=== PATIENT | female | born 2000 | race Two or more races ===

== ENCOUNTER 2022-10-28 14:16 | Emergency (ER) | payer OTHER ==
[~2022-10-28] VITALS: Ht 154.9 cm; Wt 59.9 kg
== END 2022-10-28 19:21 | disposition home or self-care (01) ==
LOC: EMR PED 14:16 → ER 14:16
DX: O26.893 Other specified pregnancy related conditions, third trimester (principal); Z3A.28 28 weeks gestation of pregnancy; R42 Dizziness and giddiness

== ENCOUNTER 2022-11-04 12:48 | Outpatient (CLI) | payer OTHER | END 2022-11-04 13:40 | disposition home or self-care (01) | LOC: NST 12:48 | PROVIDERS: ATTEND Obstetrics & Gynecology | DX: Z34.83 Encounter for supervision of other normal pregnancy, third trimester (principal) ==

== ENCOUNTER 2022-11-24 09:06 | Outpatient (CLI) | payer OTHER | END 2022-11-24 09:50 | disposition home or self-care (01) | LOC: NST 09:06 | PROVIDERS: ATTEND Obstetrics & Gynecology Maternal & Fetal Medicine | DX: Z34.83 Encounter for supervision of other normal pregnancy, third trimester (principal) ==

== ENCOUNTER 2022-12-16 11:12 | Outpatient (CLI) | payer OTHER | END 2022-12-16 12:18 | disposition home or self-care (01) | LOC: NST 11:12 | PROVIDERS: ATTEND Obstetrics & Gynecology | DX: Z34.83 Encounter for supervision of other normal pregnancy, third trimester (principal) ==

== ENCOUNTER 2023-01-04 12:12 | Inpatient (IN) | payer OTHER ==
[~2023-01-04] VITALS: Ht 154.9 cm; Wt 67.1 kg
[2023-01-04] MEDS ORDERED: TAPAZOLE5 MG PO (14:47)
[2023-01-04] MEDS ORDERED: PRENATAL + DHA1 EAC1 PO (14:48)
== END 2023-01-06 12:10 | disposition home or self-care (01) | DRG 807 ==
LOC: LDR 12:12 → OB/GYN 19:13
PROVIDERS: ADMIT Obstetrics & Gynecology; ATTEND Obstetrics & Gynecology
PROC: 10E0XZZ Delivery of Products of Conception, External Approach (ICD-10-PCS; principal; 2023-01-04)
PROC: 0UQG7ZZ Repair Vagina, Via Natural or Artificial Opening (ICD-10-PCS; 2023-01-04)
PROC: 4A1HXCZ Monitoring of Products of Conception, Cardiac Rate, External Approach (ICD-10-PCS; 2023-01-04)
DX: O71.4 Obstetric high vaginal laceration alone (principal); Z37.0 Single live birth; Z3A.38 38 weeks gestation of pregnancy; Z20.822 Contact with and (suspected) exposure to COVID-19

== ENCOUNTER 2024-12-25 05:17 | Day surgery (SDC) | payer OTHER ==
[2024-12-23 12:03] LABS: HEMATOCRIT 39.5 % (36.0-45.00); HEMOGLOBIN 13.1 g/dL (12.0-15.00); MEAN CELL VOLUME 89.1 fL (80.00-100.00); MEAN CORPUSCULAR HEMOGLOBIN 29.7 pg (27.00-32.0); MEAN CORPUSCULAR HGB CONC 33.3 g/dl (32.0-36.0); PLATELET COUNT 189 K/uL (150-450); RED BLOOD COUNT 4.43 M/uL (4.00-6.00); RED CELL DISTRIBUTION WIDTH 14.2 % (11.5-14.5)
[2024-12-23 12:14] LABS: COVID-19 AG NEGATIVE (NEGATIVE)
[2024-12-23 12:23] LABS: PH,URINE 5.5 (5.0-8.0); URINE APPEARANCE Clear; URINE BILIRRUBIN Negative (NEGATIVE); URINE BLOOD Negative; URINE COLOR Yellow; URINE GLUCOSE Negative (NEGATIVE); URINE KETONE Trace (NEGATIVE); URINE LEUKOCYTE Negative; URINE NITRATE Negative; URINE PROTEIN Negative (NEGATIVE); URINE UROBILINOGEN 0.2 E.U./dl
[2024-12-23 12:25] LABS: INR 1.06; PARTIAL THROMBOPLASTIN TIME 28.2 SECONDS (22.0-34.0); PROTHROMBIN TIME 11.5 SECONDS (9.0-11.5)
[2024-12-23 12:50] LABS: URINE BACTERIA 1.2 uL (0.0-1933); URINE EPITHELIAL CELLS 1.2 uL (0.0-38.8); URINE RBC 0.7 uL (0.0-20.8); URINE WBC 0.9 uL (0.0-23.2)
[2024-12-23 13:03] LABS: ALBUMIN 4.4 gm/dL (3.4-5.0); BILIRUBIN TOTAL 1.03 mg/dL (0.3-1.2); CALCIUM 9.5 mg/dL (8.5-10.1); CREATININE SERUM 0.52 mg/dL (0.55-1.02); GFR 147.46; GLOBULINA 3.5 G/DL (2.4-3.5); POTASSIUM 4.62 mEq/L (3.5-5.1); TOTAL PROTEIN 7.9 gm/dL (6.4-8.2)
[~2024-12-25 05:17] MED LIST: PRENATAL + DHA1 EAC1 PO; TAPAZOLE5 MG PO
[2024-12-25] MEDS ORDERED: CEFOXITIN SODIUM 2,000 MG VIAL IV ONE (08:15)
[2024-12-25] MEDS ORDERED: MISOPROSTOL 100 MCG TABLET VAG ONE (08:45)
== END 2024-12-25 14:45 | disposition home or self-care (01) ==
LOC: CIR.AMB 05:17
PROVIDERS: ATTEND Obstetrics & Gynecology
DX: O02.1 Missed abortion (principal); E03.8 Other specified hypothyroidism